=== PATIENT | male | born 1950 | race Hispanic/Latino ===

== ENCOUNTER 2023-06-22 21:00 | Emergency (ER) | payer MEDICARE ==
[~2023-06-22] VITALS: Ht 172.7 cm; Wt 101.2 kg
[2023-06-22] MEDS ORDERED: VENTOLIN HFA18 GM INH (22:10)
[2023-06-22] MEDS ORDERED: TYLENOL325 MG PO (22:10)
[2023-06-22] MEDS ORDERED: CORICIDIN HBP1 EAC8 PO (22:10)
[2023-06-22] MEDS ORDERED: PAXLOVID 150-11 EAC1 PO (22:10)
[2023-06-22 22:24] VITALS: BP 124/69; PULSE 90; RESP 18; TEMP 98.7; O2SAT 93
== END 2023-06-22 22:14 | disposition home or self-care (01) ==
LOC: FSED 21:09
DX: R09.02 Hypoxemia (principal); U07.1 COVID-19; R05.9 Cough, unspecified; R41.0 Disorientation, unspecified; R53.1 Weakness; W01.0XXA Fall on same level from slipping, tripping and stumbling without subsequent striking against object, initial encounter; Y92.89 Other specified places as the place of occurrence of the external cause; E11.9 Type 2 diabetes mellitus without complications
CPT/HCPCS: 0223U; 70450; 71250; 80053; 81003; 82553; 83880; 84484; 85025; 87400; 99284